=== PATIENT | male | born 1940 | race Caucasian/White ===

== ENCOUNTER → 2018-08-26 | Outpatient (CLI) | payer MEDICARE | END | disposition home or self-care (01) | LOC: ROC 07:40 | PROVIDERS: ATTEND Radiology Radiation Oncology | DX: D35.2 Benign neoplasm of pituitary gland (principal) | CPT/HCPCS: G0463 ==

== ENCOUNTER 2020-12-27 18:45 | Inpatient (IN) | payer MEDICARE ==
[~2020-12-27] VITALS: Ht 180.3 cm; Wt 102.0 kg
[2020-12-27 19:50] LABS: MEAN CORPUSCULAR HEMOGLOBIN 34.1 pg (27.5-34.5); MEAN CORPUSCULAR HGB CONC 33.2 g/dL (33.2-36.2); MEAN PLATELET VOLUME 9.3 fL (7.4-10.4); PLATELET COUNT 173 x10^3/uL (130-400); RED BLOOD COUNT 3.67 x10^6/uL (4.38-5.82); RED CELL DISTRIBUTION WIDTH 15.4 % (9.4-14.8)
[2020-12-27] MEDS ORDERED: SODIUM CHLORIDE FLUSH 10ML SYR IVF ONE (20:00)
[2020-12-27] MEDS ORDERED: PIPERACILLIN/TAZO/PMX 3.375GM 50 ML IV ONE (20:00)
[2020-12-27 20:01] LABS: ALANINE AMINOTRANSFERASE 29 U/L (12-78); ALBUMIN 3.7 g/dL (3.4-5.0); ANION GAP 8 mmol/L (5-15); CALCIUM 9.2 mg/dL (8.5-10.1); CHLORIDE 107 mmol/L (98-107); CREATININE 1.23 mg/dL (0.7-1.3)
[2020-12-27 20:05] LABS: ALKALINE PHOSPHATASE 53 U/L (45-117); BILIRUBIN,TOTAL 0.4 mg/dL (0.2-1.0)
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
[2020-12-27 20:22] LABS: MD YES
[2020-12-27 20:27] LABS: BAND#(MANUAL) 0.07 x10^3/uL; BANDS%(MANUAL) 1 % (0-7); BASOS#(MANUAL) 0.07 x10^3/uL (0-0.1); BASOS% (MANUAL) 1 % (0-1); EOS#(MANUAL) 0.14 x10^3/uL (0.0-0.4); EOS% (MANUAL) 2 % (1-7); LYMPH#(MANUAL) 0.88 x10^3/uL (1-3.4); LYMPHS% (MANUAL) 13 % (22-44); MONOS#(MANUAL) 0.61 x10^3/uL (0.3-2.7); MONOS% (MANUAL) 9 % (2-9); SEG#(MANUAL) 5.03 x10^3/uL (1.8-6.8); SEGS% (MANUAL) 74 % (42-75)
[2020-12-27 20:28] LABS: ANISOCYTOSIS 1+
[2020-12-27 20:29] LABS: ECHINOCYTES 1+
[2020-12-27 20:30] LABS: OVALOCYTES 1+
[2020-12-27 20:31] LABS: <PLATELET ESTIMATE> ADEQUATE; <PLT MORPHOLOGY> NORMAL PLT MORPH
[2020-12-27] MEDS ORDERED: FUROSEMIDE 40 MG/4 ML ONE (20:44)
[2020-12-27] MEDS ORDERED: PIPERACILLIN/TAZO/PMX 3.375GM 50 ML ONE (20:44)
[2020-12-27] MEDS ORDERED: FUROSEMIDE 40 MG/4 ML IV ONE (21:00)
[2020-12-27] MEDS ORDERED: ATEN25TA PO (21:41)
[2020-12-27] MEDS ORDERED: LISI-167 PO (21:41)
[2020-12-27] MEDS ORDERED: MULT-826 PO (21:41)
[2020-12-27] MEDS ORDERED: HYDR-3590 PO ×2 (21:41)
[2020-12-27] MEDS ORDERED: BACL-19 PO (21:41)
[2020-12-27] MEDS ORDERED: testosterone TD (21:41)
[2020-12-27] MEDS ORDERED: ATOR10TA9 PO (21:41)
[2020-12-27] MEDS ORDERED: LEVO88TA4 PO (21:41)
[2020-12-27] MEDS ORDERED: CHOL10003 PO (21:41)
[2020-12-27] MEDS ORDERED: FOLI1TAB32 PO (21:41)
[2020-12-27] MEDS ORDERED: TAMS-11 PO (21:41)
[2020-12-27] MEDS ORDERED: ASPI325T20 PO (21:41)
[2020-12-27] MEDS ORDERED: VITA1TAB19 PO (21:41)
--- NOTE | 2020-12-27 21:45 | NUR ---
CALL TO DR. WISEMAN TO UPDATE ON MED REC, PER DR. WISEMAN PT ADMIT ORDERS TO BE PLACED FOR MED SURG SHORTLY.
[2020-12-27] MEDS: ASPIRIN 325 MG TABLET EC PO SCH (22:00)
[2020-12-27] MEDS ORDERED: PHARMACOKINETIC CONSULTATION MC ONE (22:00)
[2020-12-27] MEDS ORDERED: PHARMACOKINETIC MONITORING MC PRN (22:00)
[2020-12-27] MEDS ORDERED: VANCOMYCIN PER PHARMACY MC PRN (22:00)
[2020-12-27] MEDS ORDERED: ATENOLOL 25 MG TABLET PO SCH (22:00)
[2020-12-27] MEDS ORDERED: DOCUSATE 100 MG CAPSULE PO PRN (22:00)
[2020-12-27] MEDS ORDERED: ONDANSETRON 2MG/ML, 2ML IVPush PRN (22:00)
[2020-12-27] MEDS: ATORVASTATIN 10 MG TABLET PO SCH (22:00)
[2020-12-27] MEDS: BACLOFEN 10 MG TABLET PO SCH (22:00)
[2020-12-27] MEDS ORDERED: BISACODYL 10 MG SUPP PR PRN (22:00)
[2020-12-27] MEDS ORDERED: VANCOMYCIN PMX 1GM/200ML 200 ML IV ONE (22:00)
[2020-12-27] MEDS ORDERED: VANCOMYCIN 2,200 MG in SODIUM CHLORIDE 0.9% 500 ML IV ONE (22:00)
[2020-12-27] MEDS ORDERED: PROMETHAZINE 25 MG/ML, 1ML IM PRN (22:00)
[2020-12-27] MEDS ORDERED: hydrALAzine 20 MG/ML, 1ML IVPush PRN (22:00)
[2020-12-27] MEDS: TESTOSTERONE PUMP TP SCH (22:00)
[2020-12-27] MEDS ORDERED: ONDANSETRON ODT 4 MG PO PRN (22:00)
[2020-12-27] MEDS ORDERED: ACETAMINOPHEN 325 MG TABLET PO PRN (22:00)
[2020-12-27] MEDS ORDERED: AMPICILLIN/SULBACTAM 3 GM in SODIUM CHLORIDE 0.9% 100 ML IV SCH (22:00)
--- NOTE | 2020-12-27 22:14 | NUR ---
REPORT GIVEN TO ANNE-MARIE ROSARIO.
[2020-12-27] MEDS: ENOXAPARIN 40 MG/0.4 ML SQ SCH (23:19)
[2020-12-27] MEDS: HYDROCORTISONE 10 MG TABLET PO SCH (23:20)
[2020-12-27] MEDS: OXYcodone IR 5MG TABLET PO PRN (23:29)
[2020-12-28 00:48] VITALS: BP 109/68
[2020-12-28] MEDS: AMPICILLIN/SULBACTAM 3 GM in SODIUM CHLORIDE 0.9% 100 ML IV SCH ×2 (02:31→08:52)
[2020-12-28] MEDS: OXYcodone IR 5MG TABLET PO PRN ×3 (04:05→21:15)
[2020-12-28] MEDS: BACLOFEN 10 MG TABLET PO SCH ×2 (05:08→16:28)
[2020-12-28 05:48] LABS: BASOPHILS % (AUTO) 1 % (0-1); EOSINOPHILS % (AUTO) 3 % (1-7); LYMPHOCYTES % (AUTO) 19 % (22-44); MEAN CORPUSCULAR HEMOGLOBIN 34.6 pg (27.5-34.5); MEAN CORPUSCULAR HGB CONC 33.7 g/dL (33.2-36.2); MEAN PLATELET VOLUME 8.8 fL (7.4-10.4); MONOCYTES % (AUTO) 18 % (2-9); NEUTROPHILS % (AUTO) 60 % (42-75); PLATELET COUNT 167 x10^3/uL (130-400); RED CELL DISTRIBUTION WIDTH 14.9 % (9.4-14.8)
[2020-12-28 05:59] LABS: MD NO
[2020-12-28 06:07] LABS: CHLORIDE 109 mmol/L (98-107)
[2020-12-28 06:21] LABS: ALANINE AMINOTRANSFERASE 26 U/L (12-78); ALBUMIN 3.4 g/dL (3.4-5.0); ALKALINE PHOSPHATASE 51 U/L (45-117); ANION GAP 4 mmol/L (5-15); BILIRUBIN,TOTAL 0.6 mg/dL (0.2-1.0); CALCIUM 8.9 mg/dL (8.5-10.1); CHOL/HDL RATIO 1.9; CHOLESTEROL, TOTAL 135 mg/dL (140-239); CREATININE 1.29 mg/dL (0.7-1.3); HDL CHOL % 53 % (26-37); HDL CHOLESTEROL (DIRECT) 71 mg/dL (40-60); LDL CHOLESTEROL,CALCULATED 54 mg/dL (54-169); LDL/HDL RATIO 0.8 (0.5-3.0); TOTAL PROTEIN 6.1 g/dL (6.4-8.2); TRIGLYCERIDES 49 mg/dL (50-200); VLDL CHOLESTEROL 10 mg/dL (0-25)
[2020-12-28 06:30] VITALS: BP 88/55
[2020-12-28] MEDS: TAMSULOSIN 0.4 MG CAP.ER.24H PO SCH (08:52)
[2020-12-28] MEDS: MULTIVITAMIN 1 TABLET PO SCH (08:52)
[2020-12-28] MEDS: MULTIVITS,STRESS FORMULA 1 TABLET PO SCH (08:52)
[2020-12-28] MEDS: LEVOTHYROXINE 88 MCG TABLET PO SCH (08:52)
[2020-12-28] MEDS: FOLIC ACID 1 MG TABLET PO SCH (08:52)
[2020-12-28] MEDS ORDERED: HYDROCORTISONE 5 MG TABLET ONE ×2 (08:54→21:11)
[2020-12-28] MEDS: HYDROCORTISONE 10 MG TABLET PO SCH ×2 (08:55→21:14)
[2020-12-28] MEDS: FUROSEMIDE 20 MG/2 ML IV SCH (08:56)
[2020-12-28] MEDS: LISINOPRIL 10 MG TABLET PO SCH (08:56)
[2020-12-28] MEDS: CHOLECALCIFEROL 1,000 UNIT TABLET PO SCH (08:57)
[2020-12-28] MEDS ORDERED: FUROSEMIDE 20 MG/2 ML IV SCH (09:00)
[2020-12-28] MEDS ORDERED: LISINOPRIL 10 MG TABLET PO SCH (09:00)
[2020-12-28 09:34] VITALS: BP 109/64
[2020-12-28 13:32] VITALS: BP 120/65
[2020-12-28] MEDS ORDERED: VANCOMYCIN 2,000 MG in SODIUM CHLORIDE 0.9% 500 ML IV SCH (17:00)
[2020-12-28 19:44] VITALS: BP 103/60
[2020-12-28] MEDS: ASPIRIN 325 MG TABLET EC PO SCH (21:14)
[2020-12-28] MEDS: ATORVASTATIN 10 MG TABLET PO SCH (21:14)
[2020-12-28] MEDS: ATENOLOL 25 MG TABLET PO SCH (21:15)
[2020-12-28] MEDS: ENOXAPARIN 40 MG/0.4 ML SQ SCH (21:16)
[2020-12-28] MEDS: TESTOSTERONE PUMP TP SCH (21:16)
[2020-12-28] MEDS: BACLOFEN 10 MG TABLET PO PRN (23:33)
[2020-12-29 00:23] VITALS: BP 107/65
[2020-12-29] MEDS: OXYcodone IR 5MG TABLET PO PRN ×2 (04:22→20:53)
[2020-12-29] MEDS: LEVOTHYROXINE 88 MCG TABLET PO SCH (05:07)
[2020-12-29 06:12] LABS: CHLORIDE 106 mmol/L (98-107)
[2020-12-29 06:16] LABS: ANION GAP 8 mmol/L (5-15); CALCIUM 8.5 mg/dL (8.5-10.1); CREATININE 1.08 mg/dL (0.7-1.3)
[2020-12-29 06:38] VITALS: BP 116/68
[2020-12-29] MEDS: HYDROCORTISONE 10 MG TABLET PO SCH ×2 (10:27→19:32)
[2020-12-29] MEDS: TAMSULOSIN 0.4 MG CAP.ER.24H PO SCH (10:27)
[2020-12-29] MEDS: LISINOPRIL 10 MG TABLET PO SCH (10:27)
[2020-12-29] MEDS: MULTIVITS,STRESS FORMULA 1 TABLET PO SCH (10:27)
[2020-12-29] MEDS: FUROSEMIDE 20 MG/2 ML IV SCH (10:28)
[2020-12-29] MEDS: MULTIVITAMIN 1 TABLET PO SCH (10:28)
[2020-12-29] MEDS: FOLIC ACID 1 MG TABLET PO SCH (10:28)
[2020-12-29] MEDS: CHOLECALCIFEROL 1,000 UNIT TABLET PO SCH (10:28)
[2020-12-29 14:40] VITALS: BP 101/65
[2020-12-29 19:24] VITALS: BP 89/58
[2020-12-29] MEDS: FUROSEMIDE 40 MG/4 ML IV SCH (19:25)
[2020-12-29] MEDS: TESTOSTERONE PUMP TP SCH (19:26)
[2020-12-29] MEDS: ATENOLOL 25 MG TABLET PO SCH (19:26)
[2020-12-29] MEDS: ATORVASTATIN 10 MG TABLET PO SCH (19:32)
[2020-12-29] MEDS: BACLOFEN 10 MG TABLET PO PRN (19:32)
[2020-12-29] MEDS: ASPIRIN 325 MG TABLET EC PO SCH (19:32)
[2020-12-29] MEDS: ENOXAPARIN 40 MG/0.4 ML SQ SCH (20:54)
[2020-12-29] MEDS: MELATONIN 5 MG TABLET PO SCH (22:30)
[2020-12-30 01:12] VITALS: BP 112/64
[2020-12-30 05:22] LABS: HCT (SEDRATE) 33.9 % (39.2-51.8)
[2020-12-30 05:31] LABS: ANION GAP 7 mmol/L (5-15); CALCIUM 8.4 mg/dL (8.5-10.1); CHLORIDE 108 mmol/L (98-107); CREATININE 1.03 mg/dL (0.7-1.3)
[2020-12-30 05:42] LABS: BASOPHILS % (AUTO) 1 % (0-1); EOSINOPHILS % (AUTO) 2 % (1-7); LYMPHOCYTES % (AUTO) 12 % (22-44); MEAN CORPUSCULAR HEMOGLOBIN 34.8 pg (27.5-34.5); MEAN CORPUSCULAR HGB CONC 33.9 g/dL (33.2-36.2); MEAN PLATELET VOLUME 9.1 fL (7.4-10.4); MONOCYTES % (AUTO) 16 % (2-9); NEUTROPHILS % (AUTO) 69 % (42-75); PLATELET COUNT 149 x10^3/uL (130-400); RED BLOOD COUNT 3.27 x10^6/uL (4.38-5.82); RED CELL DISTRIBUTION WIDTH 14.7 % (9.4-14.8)
[2020-12-30 05:49] LABS: MD NO
[2020-12-30] MEDS: OXYcodone IR 5MG TABLET PO PRN ×3 (05:58→19:55)
[2020-12-30 06:24] VITALS: BP 119/60
[2020-12-30] MEDS: FOLIC ACID 1 MG TABLET PO SCH (08:29)
[2020-12-30] MEDS: LEVOTHYROXINE 88 MCG TABLET PO SCH (08:29)
[2020-12-30] MEDS: MULTIVITAMIN 1 TABLET PO SCH (08:29)
[2020-12-30] MEDS: TAMSULOSIN 0.4 MG CAP.ER.24H PO SCH (08:29)
[2020-12-30] MEDS: HYDROCORTISONE 10 MG TABLET PO SCH ×2 (08:30→19:55)
[2020-12-30] MEDS: MULTIVITS,STRESS FORMULA 1 TABLET PO SCH (08:30)
[2020-12-30] MEDS: LISINOPRIL 10 MG TABLET PO SCH (08:30)
[2020-12-30] MEDS: CHOLECALCIFEROL 1,000 UNIT TABLET PO SCH (08:31)
[2020-12-30] MEDS: FUROSEMIDE 40 MG/4 ML IV SCH ×2 (08:31→19:58)
[2020-12-30 08:33] VITALS: BP 114/72
[2020-12-30 13:28] VITALS: BP 98/57
[2020-12-30] MEDS: BACLOFEN 10 MG TABLET PO PRN (15:24)
[2020-12-30 19:11] VITALS: BP 93/55
[2020-12-30] MEDS: MELATONIN 5 MG TABLET PO SCH (19:55)
[2020-12-30] MEDS: ASPIRIN 325 MG TABLET EC PO SCH (19:58)
[2020-12-30] MEDS: ATENOLOL 25 MG TABLET PO SCH (19:58)
[2020-12-30] MEDS: ATORVASTATIN 10 MG TABLET PO SCH (19:58)
[2020-12-30] MEDS: TESTOSTERONE PUMP TP SCH (21:00)
[2020-12-30] MEDS: ENOXAPARIN 40 MG/0.4 ML SQ SCH (22:32)
[2020-12-31] MEDS: OXYcodone IR 5MG TABLET PO PRN ×5 (00:21→21:16)
[2020-12-31 01:46] VITALS: BP 119/72
[2020-12-31] MEDS: LEVOTHYROXINE 88 MCG TABLET PO SCH (04:47)
[2020-12-31 05:45] LABS: CHLORIDE 108 mmol/L (98-107)
[2020-12-31 05:50] LABS: ANION GAP 6 mmol/L (5-15); CALCIUM 9.1 mg/dL (8.5-10.1); CREATININE 1.06 mg/dL (0.7-1.3)
[2020-12-31 07:56] VITALS: BP 112/60
[2020-12-31] MEDS: CHOLECALCIFEROL 1,000 UNIT TABLET PO SCH (08:51)
[2020-12-31] MEDS: LISINOPRIL 10 MG TABLET PO SCH (08:52)
[2020-12-31] MEDS: MULTIVITS,STRESS FORMULA 1 TABLET PO SCH (08:52)
[2020-12-31] MEDS: MULTIVITAMIN 1 TABLET PO SCH (08:53)
[2020-12-31] MEDS: TAMSULOSIN 0.4 MG CAP.ER.24H PO SCH (08:53)
[2020-12-31] MEDS: FUROSEMIDE 40 MG/4 ML IV SCH (08:53)
[2020-12-31] MEDS: HYDROCORTISONE 10 MG TABLET PO SCH ×2 (08:53→21:16)
[2020-12-31] MEDS: FOLIC ACID 1 MG TABLET PO SCH (08:53)
[2020-12-31 12:47] VITALS: BP 95/64
[2020-12-31] MEDS: TESTOSTERONE PUMP TP SCH (21:00)
[2020-12-31 21:12] VITALS: BP 124/72
[2020-12-31] MEDS: ASPIRIN 325 MG TABLET EC PO SCH (21:15)
[2020-12-31] MEDS: MELATONIN 5 MG TABLET PO SCH (21:15)
[2020-12-31] MEDS: ATORVASTATIN 10 MG TABLET PO SCH (21:15)
[2020-12-31] MEDS: ATENOLOL 25 MG TABLET PO SCH (21:15)
[2020-12-31] MEDS: ENOXAPARIN 40 MG/0.4 ML SQ SCH (21:17)
[2021-01-01] MEDS: morphine SULFATE 10 MG/ML, 1ML IVPush PRN ×2 (00:07→03:23)
[2021-01-01 00:30] VITALS: BP 121/75
[2021-01-01] MEDS: OXYcodone IR 5MG TABLET PO PRN ×3 (02:12→15:52)
[2021-01-01 04:57] LABS: BASOPHILS % (AUTO) 0 % (0-1); EOSINOPHILS % (AUTO) 3 % (1-7); LYMPHOCYTES % (AUTO) 9 % (22-44); MEAN CORPUSCULAR HEMOGLOBIN 34.7 pg (27.5-34.5); MEAN CORPUSCULAR HGB CONC 33.7 g/dL (33.2-36.2); MONOCYTES % (AUTO) 16 % (2-9); NEUTROPHILS % (AUTO) 72 % (42-75); PLATELET COUNT 165 x10^3/uL (130-400); RED BLOOD COUNT 3.38 x10^6/uL (4.38-5.82); RED CELL DISTRIBUTION WIDTH 14.8 % (9.4-14.8)
[2021-01-01 05:03] LABS: ANION GAP 4 mmol/L (5-15); CALCIUM 8.8 mg/dL (8.5-10.1); CHLORIDE 108 mmol/L (98-107)
[2021-01-01 05:04] LABS: CREATININE 1.09 mg/dL (0.7-1.3)
[2021-01-01 05:56] LABS: MD SCAN
[2021-01-01 06:47] VITALS: BP 112/66
[2021-01-01] MEDS: TAMSULOSIN 0.4 MG CAP.ER.24H PO SCH (07:20)
[2021-01-01] MEDS: HYDROCORTISONE 10 MG TABLET PO SCH ×2 (07:20→20:34)
[2021-01-01] MEDS: CHOLECALCIFEROL 1,000 UNIT TABLET PO SCH (07:20)
[2021-01-01] MEDS: FOLIC ACID 1 MG TABLET PO SCH (07:21)
[2021-01-01] MEDS: LEVOTHYROXINE 88 MCG TABLET PO SCH (07:21)
[2021-01-01] MEDS: MULTIVITAMIN 1 TABLET PO SCH (07:21)
[2021-01-01] MEDS: LISINOPRIL 10 MG TABLET PO SCH (07:21)
[2021-01-01] MEDS: MULTIVITS,STRESS FORMULA 1 TABLET PO SCH (07:21)
[2021-01-01] MEDS ORDERED: FURO-93 PO (07:28)
[2021-01-01] MEDS: FUROSEMIDE 20 MG TABLET PO SCH (07:45)
[2021-01-01] MEDS ORDERED: FLU VACC QS2020-21(6MOS UP)/PF 60MCG/0.5 ML SYR IM-VACC ONE (09:30)
[2021-01-01 14:25] VITALS: BP 87/51
[2021-01-01] MEDS: POLYETHYLENE GLYCOL 17 GM PACKET PO PRN (15:52)
[2021-01-01 20:24] VITALS: BP 117/55
[2021-01-01] MEDS: TESTOSTERONE PUMP TP SCH (20:31)
[2021-01-01] MEDS: ENOXAPARIN 40 MG/0.4 ML SQ SCH (20:33)
[2021-01-01] MEDS: MELATONIN 5 MG TABLET PO SCH (20:33)
[2021-01-01] MEDS: ATENOLOL 25 MG TABLET PO SCH (20:33)
[2021-01-01] MEDS: ATORVASTATIN 10 MG TABLET PO SCH (20:34)
[2021-01-01] MEDS: ASPIRIN 325 MG TABLET EC PO SCH (20:34)
[2021-01-02 00:11] VITALS: BP 115/72
[2021-01-02 06:43] VITALS: BP 115/67
[2021-01-02] MEDS: LEVOTHYROXINE 88 MCG TABLET PO SCH (07:50)
[2021-01-02] MEDS: POLYETHYLENE GLYCOL 17 GM PACKET PO PRN (09:59)
[2021-01-02] MEDS: morphine SULFATE 10 MG/ML, 1ML IVPush PRN ×3 (10:00→16:48)
[2021-01-02] MEDS: CHOLECALCIFEROL 1,000 UNIT TABLET PO SCH (10:02)
[2021-01-02] MEDS: TAMSULOSIN 0.4 MG CAP.ER.24H PO SCH (10:02)
[2021-01-02] MEDS: MULTIVITS,STRESS FORMULA 1 TABLET PO SCH (10:02)
[2021-01-02] MEDS: HYDROCORTISONE 10 MG TABLET PO SCH ×2 (10:02→20:26)
[2021-01-02] MEDS: FUROSEMIDE 20 MG TABLET PO SCH (10:03)
[2021-01-02] MEDS: FOLIC ACID 1 MG TABLET PO SCH (10:03)
[2021-01-02] MEDS: LISINOPRIL 10 MG TABLET PO SCH (10:03)
[2021-01-02] MEDS: MULTIVITAMIN 1 TABLET PO SCH (10:03)
[2021-01-02] MEDS: OXYcodone IR 5MG TABLET PO PRN (12:07)
[2021-01-02 12:47] VITALS: BP 117/71
[2021-01-02] MEDS ORDERED: LORazepam 2 MG/ML, 1ML IVPush ONE (14:30)
[2021-01-02 18:53] VITALS: BP 96/62
[2021-01-02] MEDS: TESTOSTERONE PUMP TP SCH (19:56)
[2021-01-02 20:24] VITALS: BP 111/70
[2021-01-02] MEDS: MELATONIN 5 MG TABLET PO SCH (20:25)
[2021-01-02] MEDS: ATENOLOL 25 MG TABLET PO SCH (20:26)
[2021-01-02] MEDS: ATORVASTATIN 10 MG TABLET PO SCH (20:26)
[2021-01-02] MEDS ORDERED: LORazepam 2 MG/ML, 1ML ONE (21:52)
[2021-01-02] MEDS ORDERED: OMNIPAQUE 350 MG/ML, 100ML BOTTLE ONE (23:09)
[2021-01-03 01:11] VITALS: BP 129/80
[2021-01-03 05:55] LABS: BASOPHILS % (AUTO) 0 % (0-1); EOSINOPHILS % (AUTO) 2 % (1-7); LYMPHOCYTES % (AUTO) 9 % (22-44); MEAN CORPUSCULAR HEMOGLOBIN 34.8 pg (27.5-34.5); MEAN CORPUSCULAR HGB CONC 34.1 g/dL (33.2-36.2); MONOCYTES % (AUTO) 16 % (2-9); NEUTROPHILS % (AUTO) 74 % (42-75); PLATELET COUNT 185 x10^3/uL (130-400); RED CELL DISTRIBUTION WIDTH 14.6 % (9.4-14.8)
[2021-01-03] MEDS: OXYcodone IR 5MG TABLET PO PRN ×2 (05:55→10:57)
[2021-01-03 06:05] LABS: ANION GAP 5 mmol/L (5-15); CALCIUM 8.4 mg/dL (8.5-10.1); CHLORIDE 106 mmol/L (98-107); CREATININE 0.95 mg/dL (0.7-1.3)
[2021-01-03 06:07] LABS: MD NO
[2021-01-03] MEDS: MULTIVITS,STRESS FORMULA 1 TABLET PO SCH (07:49)
[2021-01-03] MEDS: FOLIC ACID 1 MG TABLET PO SCH (07:50)
[2021-01-03] MEDS: TAMSULOSIN 0.4 MG CAP.ER.24H PO SCH (07:50)
[2021-01-03] MEDS: MULTIVITAMIN 1 TABLET PO SCH (07:50)
[2021-01-03] MEDS: LISINOPRIL 10 MG TABLET PO SCH (07:51)
[2021-01-03] MEDS: LEVOTHYROXINE 88 MCG TABLET PO SCH (07:51)
[2021-01-03] MEDS: CHOLECALCIFEROL 1,000 UNIT TABLET PO SCH (07:52)
[2021-01-03] MEDS: HYDROCORTISONE 10 MG TABLET PO SCH (07:52)
[2021-01-03 08:00] VITALS: BP 112/67
[2021-01-03] MEDS: morphine SULFATE 10 MG/ML, 1ML IVPush PRN (08:11)
[2021-01-03] MEDS ORDERED: OXYC5TAB98 PO (11:27)
[2021-01-03 14:03] VITALS: BP 104/66
== END 2021-01-03 16:15 | DRG 291 ==
LOC: ED 20:18 → EDIP 20:34 → ED 21:33 → 4EST 22:34 → 3N 12-30 10:01
PROVIDERS: ADMIT Internal Medicine; ATTEND Hospitalist
DX: I11.0 Hypertensive heart disease with heart failure (principal); N17.0 Acute kidney failure with tubular necrosis; I50.33 Acute on chronic diastolic (congestive) heart failure; E03.9 Hypothyroidism, unspecified; E11.9 Type 2 diabetes mellitus without complications; E78.5 Hyperlipidemia, unspecified; I25.10 Atherosclerotic heart disease of native coronary artery without angina pectoris; I48.91 Unspecified atrial fibrillation; I87.2 Venous insufficiency (chronic) (peripheral); N40.0 Benign prostatic hyperplasia without lower urinary tract symptoms; Z87.891 Personal history of nicotine dependence; Z92.3 Personal history of irradiation; Z95.1 Presence of aortocoronary bypass graft
CPT/HCPCS: 36415; 74177; 80048; 80053; 80061; 83036; 83605; 83735; 83880; 84100; 84443; 85025; 85651; 87040; 87070; 87077; 87186; 87205; 90686; 93970; 96374; 99285; C8929; G0378; J0295; J1650; J1940; J2543; J3370; Q9957; Q9967; J2060; J2270; J7040

== ENCOUNTER 2021-04-17 10:47 | Emergency (ER) | payer MEDICARE ==
[~2021-04-17] VITALS: Ht 180.3 cm; Wt 90.0 kg
[~2021-04-17 10:47] MED LIST: ACET325T26 PO; ASPI325T20 PO; ATEN25TA PO; ATOR10TA9 PO; BACL-19 PO; CHOL10003 PO; CIPR250T27 PO; CLOP75TA PO; FOLI1TAB32 PO; FURO-93 PO; HEPA50002 SQ; HYDR-3590 PO; LEVO88TA4 PO; LISI-167 PO; Loperamide PO; MULT-826 PO; OXYC5TAB98 PO; POLY17PO5 PO; TAMS-11 PO; VITA1TAB19 PO; testosterone TD
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
[2021-04-17] MEDS ORDERED: NEOSPORIN OINT. PKT 1 PACKET ONE (11:54)
--- NOTE | 2021-04-17 12:36 | NUR ---
ASSUMED CARE OF PT FROM ABRAHAM DIAZ. PT RESTING IN [facility], MONITORING IN PLACE, MIRELLA AT THIS TIME, LETTY.
--- NOTE | 2021-04-17 13:46 | NUR ---
Patient dressed and resting in gourney waiting for [facility]. Bed rails up x2, NADN. Call light within reach.
[2021-04-17 14:10] VITALS: BP 135/75
== END 2021-04-17 14:59 | disposition home or self-care (01) ==
LOC: ED 10:57
DX: S51.801A Unspecified open wound of right forearm, initial encounter (principal); I10 Essential (primary) hypertension; I48.91 Unspecified atrial fibrillation; W01.0XXA Fall on same level from slipping, tripping and stumbling without subsequent striking against object, initial encounter; Y93.89 Activity, other specified; Y92.009 Unspecified place in unspecified non-institutional (private) residence as the place of occurrence of the external cause; Y99.8 Other external cause status
CPT/HCPCS: 99283